=== PATIENT | female | born 1980 | race American Indian/Alaskan Native ===

== ENCOUNTER 2020-11-27 20:54 | Emergency (ER) | payer SELFPAY ==
[2020-11-27 23:52] LABS: Hematocrit 32.2 % (30.3-42.9); Hemoglobin 10.5 gm/dl (10.1-14.3); Mean Corpuscular HGB Conc 33 % (30-34); Mean Corpuscular Volume 83 fl (79-97); Platelet Count 425 K/mm3 (140-440); Red Cell Distribution Width 16.8 % (13.2-15.2)
[2020-11-27 23:53] LABS: Basophils # (Auto) 0.1 K/mm3 (0.0-0.1); Basophils % (Auto) 0.5 % (0.0-1.8); Eosinophils # (Auto) 0.5 K/mm3 (0.0-0.4); Eosinophils % (Auto) 3.3 % (0.0-4.3); Lymphocytes # (Auto) 2.5 K/mm3 (1.2-5.4); Lymphocytes % (Auto) 17.8 % (13.4-35.0); Monocytes # (Auto) 1.1 K/mm3 (0.0-0.8); Monocytes % (Auto) 7.5 % (0.0-7.3)
[2020-11-28 00:06] LABS: Blood Urea Nitrogen 11 mg/dL (7-17); Calcium 9.6 mg/dL (8.4-10.2); Hemolysis Index 2
[2020-11-28 00:28] LABS: BUN/Creatinine Ratio 16
== END 2020-11-28 00:45 | disposition left against medical advice (07) ==
LOC: ED 20:54
DX: Z53.21 Procedure and treatment not carried out due to patient leaving prior to being seen by health care provider (principal)
CPT/HCPCS: 36415; 80048; 85025

== ENCOUNTER 2020-11-28 10:05 | Observation (INO) | payer OTHER ==
--- NOTE | 2020-11-28 10:27 | Event Note ---
ED Screening Note ED Screening Note: here yesterday but left due to wait co abd pain and weakness she is associating this with prior spleen lac seen at [facility] recently details unclear pt whispering and I can not extract a lot of info also co rectal bleeding with hx anemia This initial assessment/diagnostic orders/clinical plan/treatment(s) is/are subject to change based on patients health status, clinical progression and re- assessment by fellow clinical providers in the ED. Further treatment and workup at subsequent clinical providers discretion. Patient/guardian urged not to elope from the ED as their condition may be serious if not clinically assessed and managed. Initial orders include: repeat labs ua
[2020-11-28 11:08] LABS: Hematocrit 30.8 % (30.3-42.9); Mean Corpuscular HGB Conc 33 % (30-34); Mean Corpuscular Volume 82 fl (79-97); Platelet Count 452 K/mm3 (140-440); Red Blood Count 3.74 M/mm3 (3.65-5.03); Red Cell Distribution Width 16.7 % (13.2-15.2)
[2020-11-28 11:11] LABS: Bilirubin,Urine NEG (Negative); Blood,Urine NEG (Negative); Color,Urine Yellow (Yellow); HCG Qualitative,Urine Negative (Negative); Mucus,Urine FEW /HPF
[2020-11-28 11:22] LABS: Amphetamine Screen,Urine Negative; Benzodiazepines Screen,Urine Negative; Cannabinoid Screen,Urine Negative; Methadone Screen,Urine Negative; Opiate Screen,Urine Negative
[2020-11-28 11:44] LABS: Cocaine Screen,Urine PRESUMPTIVE POSITIVE
[2020-11-28 11:52] LABS: Blood Urea Nitrogen 10 mg/dL (7-17); Calcium 8.7 mg/dL (8.4-10.2); Hemolysis Index 0
[2020-11-28 12:01] LABS: BUN/Creatinine Ratio 17
[2020-11-28] MEDS ORDERED: MORPHINE 4 MG/1 ML INJ IV ONE (16:54)
[2020-11-28] MEDS ORDERED: SODIUM CHLORIDE 0.9% 1000 ML 1,000 ML IV ONE (16:54)
[2020-11-28] MEDS ORDERED: ONDANSETRON 4 MG/2 ML INJ IV ONE (16:54)
[2020-11-28] MEDS ORDERED: HYDROmorphone 1 MG/1 ML INJ IV ONE (17:57)
--- NOTE | 2020-11-28 18:01 | Cat Scan Report ---
CT abdomen pelvis w con INDICATION / CLINICAL INFORMATION: abd pain, n/v, dark vomit, blood in stool. TECHNIQUE: All CT scans at this location are performed using CT dose reduction for ALARA by means of automated e xposure control. COMPARISON: 12/23/2015 FINDINGS: No free fluid is seen in the abdomen. The gallbladder has been surgically removed. A small low-densit y lesion is seen in the anterior portion of the spleen that was not previously identified. The liver is unremarkable in appearance. The kidneys, pancreas and adrenal glands are normal. Great vessels are unremarkable. No enlarged mesenteric or retroperitoneal lymph nodes are seen. In the pelvis, no free fluid is seen. No enlarged lymph nodes are identified. A moderate amount of fe arturo material seen throughout the colon. The bladder is unremarkable in appearance. The appendix is no t well visualized. No significant skeletal abnormality is identified. IMPRESSION: 1. Small low-density lesion in the anterior portion of the spleen that was not present previously and is of unknown clinical significance. Ultrasound may be helpful for further evaluation if clinically indicated 2. Cholecystectomy 3. Moderate amount of fecal material throughout the colon Signer Name: Estrada Alan MD FACR Signed: 11/28/2020 5:56 PM Workstation Name: [id number]
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
--- NOTE | 2020-11-28 20:03 | Ultrasound Report ---
US abdomen complete INDICATION / CLINICAL INFORMATION: abd pain, abnormal CT. COMPARISON: None available. FINDINGS: A small cystic area is seen around the spleen similar to CT from today. The gallbladder has been surg ically removed. Common bile duct is normal measuring 2 mm. Visualized portions of the liver, kidneys, pancreas, aorta and inferior vena cava are normal. IMPRESSION: 1. Small cystic area around spleen similar in appearance to the CT scan from today and of unknown cli nical significance. 2. Cholecystectomy Signer Name: Estrada Alan MD FACR Signed: 11/28/2020 7:59 PM Workstation Name: [id number]
[2020-11-28] MEDS ORDERED: PANTOPRAZOLE 80 MG in SODIUM CHLORIDE 0.9% 100 ML IV SCH (21:00)
[2020-11-28] MEDS ORDERED: MORPHINE 2 MG/1 ML INJ IV PRN (22:18)
[2020-11-28] MEDS ORDERED: ALBUTEROL 2.5 MG/3 ML NEBU IH PRN (22:18)
[2020-11-28] MEDS ORDERED: NICOTINE 14 MG/24 HR PATCH TD ONE (22:41)
[2020-11-28] MEDS ORDERED: D5W/0.45% NACL 1,000 ML IV SCH (23:00)
--- NOTE | 2020-11-28 23:14 | History and Physical Report ---
History of Present Illness Date of examination: 11/28/20 Date of admission: 11/28/2020 Chief complaint: nausea, vomiting, and epigastric pain History of present illness: 40-year-old female who is an ongoing smoker with history of gallstones, hernia, and insomnia who presents to [facility] ED with complaints of epigastric pain, nausea, dark-colored emesis, bright red blood per rectum. Patient states that she has been experiencing nausea and vomiting x1 week, and dark-colored emesis x1 - 2 days. Endorses going to [facility] a few days ago and was reportedly diagnosed with a splenic laceration, and scheduled to see general surgery as outpatient. She became nervous after having an episode of bright red blood per rectum earlier today and decided to come into the ED for further evaluation and treatment. Denies history of hemorrhoids, rectal trauma, diarrhea, fever, chills, shortness of breath, palpitation, or recent sick contacts Past History Past Medical History: other (Gallstones, hernia, insomnia, transfusion post C- section) Past Surgical History: cholecystectomy, (X1), hernia repair, Other ("Abdominal surgery") Social history: lives with family, smoking (Smokes cigarettes daily, occasional marijuana use, social drinker) Family history: diabetes, hypertension Medications and Allergies Allergies Allergy/AdvReac Type Severity Reaction Status Date / Time codeine Allergy Swelling Verified 11/28/20 10:31 in throat milk Allergy Hives, Verified 11/28/20 10:31 Vomiting Penicillins AdvReac Hives Verified 11/28/20 10:31 Home Medications Medication Instructions Recorded Confirmed Last Taken Type Ondansetron [Zofran Odt] 4 mg PO Q8H PRN #10 tab.rapdis 04/09/16 04/14/16 04/13/16 Rx HYDROcodone/APAP 10-325 [[place] 1 each PO Q6HR PRN #30 tablet 04/14/16 Unknown Rx 10-325 mg TAB] Active Meds: Active Medications Albuterol (Albuterol 2.5 Mg/3 Ml Nebu) 2.5 mg IH Q3HRT PRN PRN Reason: Shortness Of Breath Hydromorphone HCl (Hydromorphone 1 Mg/1 Ml Inj) 0.5 mg IV Q3H PRN PRN Reason: Pain , Severe (7-10) Pantoprazole Sodium 80 mg/ (Sodium Chloride) 100 mls @ 10 mls/hr IV DIRECT AYANNA Dextrose/Sodium Chloride (D5/0.45ns) 1,000 mls @ 100 mls/hr IV DIRECT AYANNA Metoclopramide HCl (Metoclopramide 10 Mg/2 Ml Inj) 10 mg IV Q6H PRN PRN Reason: Nausea And Vomiting Morphine Sulfate (Morphine 2 Mg/1 Ml Inj) 2 mg IV Q4H PRN PRN Reason: Pain, Moderate (4-6) Ondansetron HCl (Ondansetron 4 Mg/2 Ml Inj) 4 mg IV Q6H PRN PRN Reason: Nausea And Vomiting Sodium Chloride (Sodium Chloride 0.9% 10 Ml Flush Syringe) 10 ml IV BID AYANNA Sodium Chloride (Sodium Chloride 0.9% 10 Ml Flush Syringe) 10 ml IV PRN PRN PRN Reason: LINE FLUSH Review of Systems All systems: negative (As noted in HPI) Exam - Physical Exam Narrative exam: Physical exam General appearance: Present: No acute distress, alert and oriented 3, well nourished, adult female - EENT Eyes: Present: PERRL, EOM intact ENT: hearing intact, normal dentition - Neck Neck: Present: supple, normal ROM - Respiratory Respiratory effort: Non-labored Respiratory: Clear throughout - Cardiovascular Heart rate: 80 (bpm) Rhythm: Sinus Heart Sounds: Present: S1 & S2. Absent: rub, click - Extremities Extremities: no ischemia, pulses intact, - Peripheral Assessment Peripheral Pulses: within normal limits - Abdominal General gastrointestinal: soft, non-tender, normal bowel sounds - Integumentary Integumentary: Present: warm, dry - Musculoskeletal Musculoskeletal: Able to move all extremities -Neurological Neurological: CN II-XII intact - Psychiatric Psychiatric: Appropriate for situation ,cooperative - Constitutional Vitals: Temp Pulse Resp BP Pulse Ox 98.5 F 83 18 108/67 98 11/28/20 17:55 11/28/20 17:55 11/28/20 18:24 11/28/20 17:55 11/28/20 18:24 Results - Labs CBC & Chem 7: 11/28/20 10:48 11/28/20 10:48 Labs: Laboratory Last Values WBC 13.1 K/mm3 (4.5-11.0) H 11/28/20 10:48 RBC 3.74 M/mm3 (3.65-5.03) 11/28/20 10:48 Hgb 10.0 gm/dl (10.1-14.3) L 11/28/20 10:48 Hct 30.8 % (30.3-42.9) 11/28/20 10:48 MCV 82 fl (79-97) 11/28/20 10:48 MCH 27 pg (28-32) L 11/28/20 10:48 MCHC 33 % (30-34) 11/28/20 10:48 RDW 16.7 % (13.2-15.2) H 11/28/20 10:48 Plt Count 452 K/mm3 (140-440) H 11/28/20 10:48 Sodium 139 mmol/L (137-145) 11/28/20 10:48 Potassium 3.7 mmol/L (3.6-5.0) 11/28/20 10:48 Chloride 103.5 mmol/L (98-107) 11/28/20 10:48 Carbon Dioxide 23 mmol/L (22-30) 11/28/20 10:48 Anion Gap 16 mmol/L 11/28/20 10:48 BUN 10 mg/dL (7-17) 11/28/20 10:48 Creatinine 0.6 mg/dL (0.6-1.2) 11/28/20 10:48 Estimated GFR > 60 ml/min 11/28/20 10:48 BUN/Creatinine Ratio 17 % 11/28/20 10:48 Glucose 96 mg/dL (65-100) 11/28/20 10:48 Calcium 8.7 mg/dL (8.4-10.2) 11/28/20 10:48 Urine Color Yellow (Yellow) 11/28/20 10:42 Urine Turbidity Clear (Clear) 11/28/20 10:42 Urine pH 6.0 (5.0-7.0) 11/28/20 10:42 Ur Specific [place] 1.015 (1.003-1.030) 11/28/20 10:42 Urine Protein 30 mg/dl mg/dL (Negative) 11/28/20 10:42 Urine Glucose (UA) 150 mg/dL (Negative) 11/28/20 10:42 Urine Ketones Neg mg/dL (Negative) 11/28/20 10:42 Urine Blood Neg (Negative) 11/28/20 10:42 Urine Nitrite Neg (Negative) 11/28/20 10:42 Urine Bilirubin Neg (Negative) 11/28/20 10:42 Urine Urobilinogen 2.0 mg/dL (<2.0) 11/28/20 10:42 Ur Leukocyte Esterase Neg (Negative) 11/28/20 10:42 Urine WBC (Auto) 1.0 /HPF (0.0-6.0) 11/28/20 10:42 Urine RBC (Auto) 1.0 /HPF (0.0-6.0) 11/28/20 10:42 U Epithel Cells (Auto) < 1.0 /HPF (0-13.0) 11/28/20 10:42 Urine Mucus Few /HPF 11/28/20 10:42 Urine HCG, Qual Negative (Negative) 11/28/20 10:42 Urine Opiates Screen Negative 11/28/20 10:42 Urine Methadone Screen Negative 11/28/20 10:42 Ur Barbiturates Screen Negative 11/28/20 10:42 Ur Phencyclidine Scrn Negative 11/28/20 10:42 Ur Amphetamines Screen Negative 11/28/20 10:42 U Benzodiazepines Scrn Negative 11/28/20 10:42 Urine Cocaine Screen Presumptive positive 11/28/20 10:42 U Marijuana (THC) Screen Negative 11/28/20 10:42 Drugs of Abuse Note Disclamer 11/28/20 10:42 Microbiology: Microbiology 11/28/20 18:27 Stool Stool Occult Blood (KEVIN) - Final - Diagnostic Impressions Diagnostic Impressions: CT Abdomen/Pelvis: FINDINGS: No free fluid is seen in the abdomen. The gallbladder has been surgically removed. A small low- density lesion is seen in the anterior portion of the spleen that was not previously identified. The liver is unremarkable in appearance. The kidneys, pancreas and adrenal glands are normal. Great vessels are unremarkable. No enlarged mesenteric or retroperitoneal lymph nodes are seen. In the pelvis, no free fluid is seen. No enlarged lymph nodes are identified. A moderate amount of fecal material seen throughout the colon. The bladder is unremarkable in appearance. The appendix is not well visualized. No significant skeletal abnormality is identified. IMPRESSION: 1. Small low-density lesion in the anterior portion of the spleen that was not present previously and is of unknown clinical significance. Ultrasound may be helpful for further evaluation if clinically indicated 2. Cholecystectomy 3. Moderate amount of fecal material throughout the colon Abd US: FINDINGS: A small cystic area is seen around the spleen similar to CT from toda y. The gallbladder has been surgically removed. Common bile duct is normal measuring 2 mm. Visualized portions of the liver, kidneys, pancreas, aorta and inferior vena cava are normal. IMPRESSION: 1. Small cystic area around spleen similar in appearance to the CT scan from today and of unknown clinical significance. 2. Cholecystectomy Assessment and Plan Assessment and plan: GI bleed -Complains of dark colored emesis, and bright red blood per rectum -CT abdomen pelvis shows small cystic area around spleen -GI consulted in ED recommendations appreciated -NPO -On IVF -On Protonix drip -Try and obtain medical records from [facility] Acute abdominal pain -Complains of epigastric pain -Not sure if this is related to the cystic area seen on spleen -GI following -Pain management -Supportive care Tobacco abuse -Current every day smoker -Counseled for cessation -Nicotine patch when necessary Marijuana use -Counseled for cessation DVT PPX -Hold all anticoagulation d/t GIB -SCD's
[2020-11-29] MEDS: HYDROmorphone 1 MG/1 ML INJ IV PRN ×2 (01:53→07:54)
[2020-11-29] MEDS: METOCLOPRAMIDE 10 MG/2 ML INJ IV PRN (01:53)
[2020-11-29 05:47] LABS: Basophils # (Auto) 0.1 K/mm3 (0.0-0.1); Basophils % (Auto) 0.8 % (0.0-1.8); Eosinophils # (Auto) 0.4 K/mm3 (0.0-0.4); Eosinophils % (Auto) 4.6 % (0.0-4.3); Hematocrit 30.9 % (30.3-42.9); Hemoglobin 9.7 gm/dl (10.1-14.3); Lymphocytes # (Auto) 2.7 K/mm3 (1.2-5.4); Lymphocytes % (Auto) 30.5 % (13.4-35.0); Mean Corpuscular HGB Conc 31 % (30-34); Mean Corpuscular Volume 83 fl (79-97); Monocytes # (Auto) 0.7 K/mm3 (0.0-0.8); Monocytes % (Auto) 7.5 % (0.0-7.3); Platelet Count 422 K/mm3 (140-440); Red Blood Count 3.73 M/mm3 (3.65-5.03)
[2020-11-29 06:06] LABS: Blood Urea Nitrogen 4 mg/dL (7-17); Calcium 8.5 mg/dL (8.4-10.2); Hemolysis Index 2
[2020-11-29 06:18] LABS: BUN/Creatinine Ratio 7
--- NOTE | 2020-11-29 10:44 | Gastroenterology Consultation ---
History of Present Illness - Reason for Consult Consult date: 11/29/20 N/V, Rectal Bleed, Cocaine Abuse Requesting physician: JOSEPH JACKSON - History of Present Illness The patient is a 40 yo female admitted with N/V/Abdominal pain. She has a recent hx of cocaine/EtOH binging. She has relatively normal labs, and no vomiting or signs of severe pain since admission. She has not required transfusion, and her hct is normal, despite c/o rectal bleeding at home. Ab dominal imaging has been unremarkable. She has a hx of CCY for gallstones, but current LFTs are WNL. Past History Past Medical History: other (Chronic pain/nausea disorder) Past Surgical History: cholecystectomy, (X1), hernia repair, Other ("Abdominal surgery") Social history: lives with family, smoking (Smokes cigarettes daily, occasional marijuana use, social drinker), alcohol abuse, other (Cocaine/MJ abuse) Family history: diabetes, hypertension Medications and Allergies Allergies Allergy/AdvReac Type Severity Reaction Status Date / Time codeine Allergy Swelling Verified 11/28/20 10:31 in throat milk Allergy Hives, Verified 11/28/20 10:31 Vomiting Penicillins AdvReac Hives Verified 11/28/20 10:31 Home Medications Medication Instructions Recorded Confirmed Last Taken Type Ondansetron [Zofran Odt] 4 mg PO Q8H PRN #10 tab.rapdis 04/09/16 04/14/16 04/13/16 Rx HYDROcodone/APAP 10-325 [Julian 1 each PO Q6HR PRN #30 tablet 04/14/16 Unknown Rx 10-325 mg TAB] Active Meds: Active Medications Albuterol (Albuterol 2.5 Mg/3 Ml Nebu) 2.5 mg IH Q3HRT PRN PRN Reason: Shortness Of Breath Hydromorphone HCl (Hydromorphone 1 Mg/1 Ml Inj) 0.5 mg IV Q3H PRN PRN Reason: Pain , Severe (7-10) Last Admin: 11/29/20 07:54 Dose: 0.5 mg Documented by: Pantoprazole Sodium 80 mg/ (Sodium Chloride) 100 mls @ 10 mls/hr IV DIRECT AYANNA Last Admin: 11/29/20 02:19 Dose: 8 mg/hr, 10 mls/hr Documented by: Dextrose/Sodium Chloride (D5/0.45ns) 1,000 mls @ 100 mls/hr IV DIRECT AYANNA Last Admin: 11/29/20 01:54 Dose: 100 mls/hr Documented by: Metoclopramide HCl (Metoclopramide 10 Mg/2 Ml Inj) 10 mg IV Q6H PRN PRN Reason: Nausea And Vomiting Last Admin: 11/29/20 01:53 Dose: 10 mg Documented by: Morphine Sulfate (Morphine 2 Mg/1 Ml Inj) 2 mg IV Q4H PRN PRN Reason: Pain, Moderate (4-6) Ondansetron HCl (Ondansetron 4 Mg/2 Ml Inj) 4 mg IV Q6H PRN PRN Reason: Nausea And Vomiting Sodium Chloride (Sodium Chloride 0.9% 10 Ml Flush Syringe) 10 ml IV BID AYANNA Sodium Chloride (Sodium Chloride 0.9% 10 Ml Flush Syringe) 10 ml IV PRN PRN PRN Reason: LINE FLUSH I HAVE REVIEWED/RECONCILED MEDICATIONS Review of Systems - Review of Systems All systems: negative (as noted in the HPI) Exam - Constitutional Vital Signs: Temp Pulse Resp BP Pulse Ox 98.0 F 73 18 125/83 99 11/29/20 06:58 11/29/20 06:58 11/29/20 06:58 11/29/20 06:58 11/29/20 06:58 General appearance: no acute distress - EENT Eyes: PERRL, EOM intact ENT: hearing intact, clear oral mucosa - Neck Neck: supple, normal ROM - Respiratory Respiratory effort: normal Respiratory: bilateral: CTA - Cardiovascular Rhythm: regular Heart Sounds: Present: S1 & S2 Extremities: no ischemia, No edema - Gastrointestinal General gastrointestinal: Present: soft, non-tender, non-distended - Integumentary Integumentary: Present: clear, warm, dry - Neurologic Neurological: alert and oriented x3 - Labs CBC & Chem 7: 11/29/20 04:53 11/29/20 04:53 Lab Results: Laboratory Results - last 24 hr 11/28/20 11/28/20 11/28/20 10:42 10:42 10:48 WBC 13.1 H RBC 3.74 Hgb 10.0 L Hct 30.8 MCV 82 MCH 27 L MCHC 33 RDW 16.7 H Plt Count 452 H Lymph % (Auto) [place] % (Auto) Eos % (Auto) Baso % (Auto) Lymph # (Auto) [place] # (Auto) Eos # (Auto) Baso # (Auto) Seg Neutrophils % Seg Neutrophils # Sodium Potassium Chloride Carbon Dioxide Anion Gap BUN Creatinine Estimated GFR BUN/Creatinine Ratio Glucose POC Glucose Hemoglobin A1c Calcium Urine Color Yellow Urine Turbidity Clear Urine pH 6.0 Ur Specific [place] 1.015 Urine Protein 30 mg/dl Urine Glucose (UA) 150 Urine Ketones Neg Urine Blood Neg Urine Nitrite Neg Urine Bilirubin Neg Urine Urobilinogen 2.0 Ur Leukocyte Esterase Neg Urine WBC (Auto) 1.0 Urine RBC (Auto) 1.0 U Epithel Cells (Auto) < 1.0 Urine Mucus Few Urine HCG, Qual Negative Urine Opiates Screen Negative Urine Methadone Screen Negative Ur Barbiturates Screen Negative Ur Phencyclidine Scrn Negative Ur Amphetamines Screen Negative U Benzodiazepines Scrn Negative Urine Cocaine Screen Presumptive positive U Marijuana (THC) Screen Negative Drugs of Abuse Note Disclamer 11/28/20 11/28/20 11/29/20 10:48 22:30 04:53 WBC 8.8 RBC 3.73 Hgb 9.7 L Hct 30.9 MCV 83 MCH 26 L MCHC 31 RDW 17.0 H Plt Count 422 Lymph % (Auto) 30.5 [place] % (Auto) 7.5 H Eos % (Auto) 4.6 H Baso % (Auto) 0.8 Lymph # (Auto) 2.7 [place] # (Auto) 0.7 Eos # (Auto) 0.4 Baso # (Auto) 0.1 Seg Neutrophils % 56.6 Seg Neutrophils # 5.0 Sodium 139 Potassium 3.7 Chloride 103.5 Carbon Dioxide 23 Anion Gap 16 BUN 10 Creatinine 0.6 Estimated GFR > 60 BUN/Creatinine Ratio 17 Glucose 96 POC Glucose Hemoglobin A1c 5.1 Calcium 8.7 Urine Color Urine Turbidity Urine pH Ur Specific [place] Urine Protein Urine Glucose (UA) Urine Ketones Urine Blood Urine Nitrite Urine Bilirubin Urine Urobilinogen Ur Leukocyte Esterase Urine WBC (Auto) Urine RBC (Auto) U Epithel Cells (Auto) Urine Mucus Urine HCG, Qual Urine Opiates Screen Urine Methadone Screen Ur Barbiturates Screen Ur Phencyclidine Scrn Ur Amphetamines Screen U Benzodiazepines Scrn Urine Cocaine Screen U Marijuana (THC) Screen Drugs of Abuse Note 11/29/20 11/29/20 04:53 05:48 WBC RBC Hgb Hct MCV MCH MCHC RDW Plt Count Lymph % (Auto) [place] % (Auto) Eos % (Auto) Baso % (Auto) Lymph # (Auto) [place] # (Auto) Eos # (Auto) Baso # (Auto) Seg Neutrophils % Seg Neutrophils # Sodium 140 Potassium 3.5 L Chloride 106.5 Carbon Dioxide 24 Anion Gap 13 BUN 4 L Creatinine 0.6 Estimated GFR > 60 BUN/Creatinine Ratio 7 Glucose 98 POC Glucose 129 H Hemoglobin A1c Calcium 8.5 Urine Color Urine Turbidity Urine pH Ur Specific [place] Urine Protein Urine Glucose (UA) Urine Ketones Urine Blood Urine Nitrite Urine Bilirubin Urine Urobilinogen Ur Leukocyte Esterase Urine WBC (Auto) Urine RBC (Auto) U Epithel Cells (Auto) Urine Mucus Urine HCG, Qual Urine Opiates Screen Urine Methadone Screen Ur Barbiturates Screen Ur Phencyclidine Scrn Ur Amphetamines Screen U Benzodiazepines Scrn Urine Cocaine Screen U Marijuana (THC) Screen Drugs of Abuse Note Assessment and Plan - Patient Problems (1) Abdominal pain Current Visit: Yes Status: Acute Qualifiers: Abdominal location: epigastric Qualified Code(s): R10.13 - Epigastric pain Plan to address problem: - No signs on imaging/labs of acute GI problem nor severe bleeding. - Recommend MVI therapy, minimize narcotics, regular diet. - Patient encouraged to discontinue substance abuse. - No further recs at present; will sign off; please call with questions.
[2020-11-29] MEDS ORDERED: MULTIVITAMINS ,THERAPEUTIC TAB PO SCH (11:00)
--- NOTE | 2020-11-29 14:03 | Progress Note ---
Assessment and Plan Assessment and plan: Assessment and plan: GI bleed -Complains of dark colored emesis, and bright red blood per rectum -CT abdomen pelvis shows small cystic area around spleen -GI consulted in ED recommendations appreciated -NPO -On IVF -On Protonix drip -Try and obtain medical records from [facility] Acute abdominal pain -Complains of epigastric pain -Not sure if this is related to the cystic area seen on spleen -GI following -Pain management -Supportive care Tobacco abuse -Current every day smoker -Counseled for cessation -Nicotine patch when necessary Marijuana use -Counseled for cessation DVT PPX -Hold all anticoagulation d/t GIB -SCD's 11/29/20 Patient has no nausea vomiting. No GI bleeding Patient is seen and evaluated by GI. No EGD at this point Patient is on Protonix 40 mg p.o. daily. Patient need to quit taking cocaine. We will recheck CBC BMP in the morning Possible discharge planning in the morning if cleared by GI History Interval history: Patient is seen and examined at the bedside Patient chart and medications reviewed Patient has no nausea vomiting no GI bleeding at this time Patient is seen and evaluated by GI. No EGD at this time. Vitals are stable Hospitalist Physical - Constitutional Vitals: Temp Pulse Resp BP Pulse Ox 98.0 F 73 18 125/83 99 11/29/20 06:58 11/29/20 06:58 11/29/20 06:58 11/29/20 06:58 11/29/20 06:58 Results - Labs CBC & Chem 7: 11/29/20 04:53 11/29/20 04:53 Labs: Laboratory Last Values WBC 8.8 K/mm3 (4.5-11.0) 11/29/20 04:53 RBC 3.73 M/mm3 (3.65-5.03) 11/29/20 04:53 Hgb 9.7 gm/dl (10.1-14.3) L 11/29/20 04:53 Hct 30.9 % (30.3-42.9) 11/29/20 04:53 MCV 83 fl (79-97) 11/29/20 04:53 MCH 26 pg (28-32) L 11/29/20 04:53 MCHC 31 % (30-34) 11/29/20 04:53 RDW 17.0 % (13.2-15.2) H 11/29/20 04:53 Plt Count 422 K/mm3 (140-440) 11/29/20 04:53 Lymph % (Auto) 30.5 % (13.4-35.0) 11/29/20 04:53 [place] % (Auto) 7.5 % (0.0-7.3) H 11/29/20 04:53 Eos % (Auto) 4.6 % (0.0-4.3) H 11/29/20 04:53 Baso % (Auto) 0.8 % (0.0-1.8) 11/29/20 04:53 Lymph # (Auto) 2.7 K/mm3 (1.2-5.4) 11/29/20 04:53 [place] # (Auto) 0.7 K/mm3 (0.0-0.8) 11/29/20 04:53 Eos # (Auto) 0.4 K/mm3 (0.0-0.4) 11/29/20 04:53 Baso # (Auto) 0.1 K/mm3 (0.0-0.1) 11/29/20 04:53 Seg Neutrophils % 56.6 % (40.0-70.0) 11/29/20 04:53 Seg Neutrophils # 5.0 K/mm3 (1.8-7.7) 11/29/20 04:53 Sodium 140 mmol/L (137-145) 11/29/20 04:53 Potassium 3.5 mmol/L (3.6-5.0) L 11/29/20 04:53 Chloride 106.5 mmol/L (98-107) 11/29/20 04:53 Carbon Dioxide 24 mmol/L (22-30) 11/29/20 04:53 Anion Gap 13 mmol/L 11/29/20 04:53 BUN 4 mg/dL (7-17) L 11/29/20 04:53 Creatinine 0.6 mg/dL (0.6-1.2) 11/29/20 04:53 Estimated GFR > 60 ml/min 11/29/20 04:53 BUN/Creatinine Ratio 7 % 11/29/20 04:53 Glucose 98 mg/dL (65-100) 11/29/20 04:53 POC Glucose 92 mg/dL (70-105) 11/29/20 11:15 Hemoglobin A1c 5.1 % (4-6) 11/28/20 22:30 Calcium 8.5 mg/dL (8.4-10.2) 11/29/20 04:53 Urine Color Yellow (Yellow) 11/28/20 10:42 Urine Turbidity Clear (Clear) 11/28/20 10:42 Urine pH 6.0 (5.0-7.0) 11/28/20 10:42 Ur Specific [place] 1.015 (1.003-1.030) 11/28/20 10:42 Urine Protein 30 mg/dl mg/dL (Negative) 11/28/20 10:42 Urine Glucose (UA) 150 mg/dL (Negative) 11/28/20 10:42 Urine Ketones Neg mg/dL (Negative) 11/28/20 10:42 Urine Blood Neg (Negative) 11/28/20 10:42 Urine Nitrite Neg (Negative) 11/28/20 10:42 Urine Bilirubin Neg (Negative) 11/28/20 10:42 Urine Urobilinogen 2.0 mg/dL (<2.0) 11/28/20 10:42 Ur Leukocyte Esterase Neg (Negative) 11/28/20 10:42 Urine WBC (Auto) 1.0 /HPF (0.0-6.0) 11/28/20 10:42 Urine RBC (Auto) 1.0 /HPF (0.0-6.0) 11/28/20 10:42 U Epithel Cells (Auto) < 1.0 /HPF (0-13.0) 11/28/20 10:42 Urine Mucus Few /HPF 11/28/20 10:42 Urine HCG, Qual Negative (Negative) 11/28/20 10:42 Urine Opiates Screen Negative 11/28/20 10:42 Urine Methadone Screen Negative 11/28/20 10:42 Ur Barbiturates Screen Negative 11/28/20 10:42 Ur Phencyclidine Scrn Negative 11/28/20 10:42 Ur Amphetamines Screen Negative 11/28/20 10:42 U Benzodiazepines Scrn Negative 11/28/20 10:42 Urine Cocaine Screen Presumptive positive 11/28/20 10:42 U Marijuana (THC) Screen Negative 11/28/20 10:42 Drugs of Abuse Note Disclamer 11/28/20 10:42 Microbiology: Microbiology 11/28/20 23:18 Peripheral/Venous Blood Culture - Preliminary Culture in Progress 11/28/20 23:13 Peripheral/Venous Blood Culture - Preliminary Culture in Progress 11/28/20 18:27 Stool Stool Occult Blood (KEVIN) - Final Nath/IV: Voiding Method Toilet Active Medications - Current Medications Current Medications: Generic Name Dose Route Start Last Admin Trade Name Freq PRN Reason Stop Dose Admin Albuterol 2.5 mg 11/28/20 22:18 Albuterol 2.5 Mg/3 Ml Nebu IH Q3HRT PRN Shortness Of Breath Dextrose/Sodium Chloride 1,000 mls @ 100 mls/hr 11/28/20 23:00 11/29/20 01:54 D5/0.45ns IV 100 mls/hr DIRECT AYANNA Administration Metoclopramide HCl 10 mg 11/28/20 22:18 11/29/20 01:53 Metoclopramide 10 Mg/2 Ml Inj IV 10 mg Q6H PRN Administration Nausea And Vomiting Morphine Sulfate 1 mg 11/29/20 10:45 Morphine 2 Mg/1 Ml Inj IV Q6H PRN Pain, Moderate (4-6) Multivitamins 1 each 11/29/20 11:00 Multivitamins ,Therapeutic Tab PO QDAY AYANNA Ondansetron HCl 4 mg 11/28/20 22:18 Ondansetron 4 Mg/2 Ml Inj IV Q6H PRN Nausea And Vomiting Pantoprazole Sodium 40 mg 11/29/20 11:00 Pantoprazole 40 Mg Tab PO QDAC AYANNA Sodium Chloride 10 ml 11/29/20 10:00 Sodium Chloride 0.9% 10 Ml Flush Syringe IV BID AYANNA Sodium Chloride 10 ml 11/28/20 22:18 Sodium Chloride 0.9% 10 Ml Flush Syringe IV PRN PRN LINE FLUSH Nutrition/Malnutrition Assess - Malnutrition Assessment Minimum of two criteria: No - Attestation Statement I have reviewed and agreed w/ Malnutrition eval & tx plan: Yes
[2020-11-29] MEDS: ONDANSETRON 4 MG/2 ML INJ IV PRN ×2 (14:20→21:36)
[2020-11-29] MEDS: MORPHINE 2 MG/1 ML INJ IV PRN ×2 (15:25→21:36)
[2020-11-29] MEDS ORDERED: NICOTINE 14 MG/24 HR PATCH TD ONE (22:09)
[2020-11-29] MEDS: PANTOPRAZOLE 40 MG TAB PO SCH (22:15)
[2020-11-30] MEDS: MORPHINE 2 MG/1 ML INJ IV PRN ×2 (05:54→14:28)
[2020-11-30] MEDS: METOCLOPRAMIDE 10 MG/2 ML INJ IV PRN (05:54)
[2020-11-30 09:16] LABS: Basophils # (Auto) 0.1 K/mm3 (0.0-0.1); Basophils % (Auto) 0.6 % (0.0-1.8); Eosinophils # (Auto) 0.2 K/mm3 (0.0-0.4); Eosinophils % (Auto) 2.7 % (0.0-4.3); Hematocrit 31.5 % (30.3-42.9); Lymphocytes # (Auto) 2.8 K/mm3 (1.2-5.4); Lymphocytes % (Auto) 30.2 % (13.4-35.0); Mean Corpuscular HGB Conc 32 % (30-34); Mean Corpuscular Volume 83 fl (79-97); Monocytes # (Auto) 0.6 K/mm3 (0.0-0.8); Monocytes % (Auto) 6.5 % (0.0-7.3); Platelet Count 447 K/mm3 (140-440); Red Blood Count 3.79 M/mm3 (3.65-5.03); Red Cell Distribution Width 17.1 % (13.2-15.2)
[2020-11-30 09:19] LABS: Alanine Aminotransferase 6 units/L (7-56); Albumin 3.4 g/dL (3.9-5); Blood Urea Nitrogen 4 mg/dL (7-17); Calcium 8.5 mg/dL (8.4-10.2); Hemolysis Index 15
[2020-11-30 09:21] LABS: BUN/Creatinine Ratio 6; Bilirubin,Direct < 0.2 mg/dL (0-0.2)
[2020-11-30] MEDS ORDERED: NICOTINE 14 MG/24 HR PATCH TD SCH (10:00)
[2020-11-30 12:29] VITALS: BP 117/73
[2020-11-30] MEDS ORDERED: POTASSIUM CHLORIDE ER 20 MEQ TAB PO ONE (13:13)
--- NOTE | 2020-11-30 13:19 | Discharge Summary ---
Providers - Providers Date of Admission: 11/28/20 22:18 Date of discharge: 11/30/20 Attending physician: JOSEPH JACKSON MD 11/28/20 20:42 Consult to Physician [CONS] Stat Comment: LLUVIA Tate spoke with Dr. Perez @ 2033 Consulting Provider: OZ PEREZ Physician Instructions: Reason For Exam: GI bleed, spleen lesion Primary care physician: [facility] Hospitalization Reason for admission: GI bleed. Acute abdominal pain tobacco abuse cocaine abuse Condition: Fair Hospital course: GI bleed -Complains of dark colored emesis, and bright red blood per rectum -CT abdomen pelvis shows small cystic area around spleen -GI consulted in ED recommendations appreciated -NPO -On IVF -On Protonix drip -Try and obtain medical records from [facility] Acute abdominal pain -Complains of epigastric pain -Not sure if this is related to the cystic area seen on spleen -GI following -Pain management -Supportive care Tobacco abuse -Current every day smoker -Counseled for cessation -Nicotine patch when necessary Marijuana use -Counseled for cessation DVT PPX -Hold all anticoagulation d/t GIB -SCD's 11/29/20 Patient has no nausea vomiting. No GI bleeding Patient is seen and evaluated by GI. No EGD at this point Patient is on Protonix 40 mg p.o. daily. Patient need to quit taking cocaine. We will recheck CBC BMP in the morning Possible discharge planning in the morning if cleared by GI 11/30/20 No GI bleeding. Patient complained mild nausea no vomiting. Patient was seen and evaluated by GI. No EGD at this point Patient advised to quit taking cocaine We will continue Protonix , Reglan. Recommend decrease intake of narcotic Discharge home and outpatient follow-up with primary care and GI in 1 to 2 weeks History 40-year-old female who is an ongoing smoker with history of gallstones, hernia, and insomnia who presents to [facility] ED with complaints of epigastric pain, nausea, dark-colored emesis, bright red blood per rectum. Patient states that she has been experiencing nausea and vomiting x1 week, and dark-colored emesis x1 - 2 days. Endorses going to [facility] a few days ago and was reportedly diagnosed with a splenic laceration, and scheduled to see general surgery as outpatient. She became nervous after having an episode of bright red blood per rectum earlier today and decided to come into the ED for further evaluation and treatment. Denies history of hemorrhoids, rectal trauma, diarrhea, fever, chills, shortness of breath, palpitation, or recent sick contacts Interval history: Patient is seen and examined at the bedside Patient chart and medications reviewed Patient has no nausea vomiting no GI bleeding at this time Patient is seen and evaluated by GI. No EGD at this time. Vitals are stable Disposition: DC-01 TO HOME OR SELFCARE Final Discharge Diagnosis (Prints w/discharge instructions): GI bleed resolved. Abdominal pain resolved tobacco abuse cocaine abuse - Discharge Diagnoses (1) Abdominal pain Status: Acute Qualifiers: Abdominal location: epigastric Qualified Code(s): R10.13 - Epigastric pain (2) Cocaine use Status: Acute (3) GI bleed Status: Acute Qualifiers: GI bleed type/associated pathology: unspecified gastrointestinal hemorrhage type Qualified Code(s): K92.2 - Gastrointestinal hemorrhage, unspecified (4) Nausea and vomiting Status: Acute Qualifiers: Vomiting type: unspecified Vomiting Intractability: non-intractable Qualified Code(s): R11.2 - Nausea with vomiting, unspecified Core Measure Documentation - Palliative Care Palliative Care/ Comfort Measures: Not Applicable - Core Measures Any of the following diagnoses?: none Exam - Constitutional Vitals: Temp Pulse Resp BP Pulse Ox 98.4 F 78 16 117/73 97 11/30/20 12:06 11/30/20 12:06 11/30/20 12:06 11/30/20 12:06 11/30/20 12:06 General appearance: Present: no acute distress - EENT Eyes: Present: PERRL ENT: hearing intact, clear oral mucosa - Neck Neck: Present: supple, normal ROM - Respiratory Respiratory effort: normal Respiratory: bilateral: CTA - Cardiovascular Heart Sounds: Present: S1 & S2. Absent: rub, click - Extremities Extremities: pulses symmetrical, No edema Peripheral Pulses: within normal limits - Abdominal General gastrointestinal: Present: soft, non-tender, non-distended, normal bowel sounds Female genitourinary: Present: normal - Integumentary Integumentary: Present: clear, warm, dry - Musculoskeletal Musculoskeletal: gait normal, strength equal bilaterally - Psychiatric Psychiatric: appropriate mood/affect, intact judgment & insight - Neurologic Neurologic: CNII-XII intact, moves all extremities Plan Diet: regular, low fat Follow up with: PRIMARY CARE,MD [Primary Care Provider] - 3-5 Days Prescriptions: Pantoprazole [Protonix TAB] 40 mg PO QDAC 30 Days tablet Metoclopramide HCl [Reglan TAB] 5 mg PO TIDAC 5 Days tablet
[2020-11-30] MEDS: PANTOPRAZOLE 40 MG TAB PO SCH (14:32)
[2020-11-30] MEDS: ONDANSETRON 4 MG/2 ML INJ IV PRN (14:36)
== END 2020-11-30 15:00 | disposition home or self-care (01) ==
LOC: ED 10:05 → INTOOBSV 22:18 → 3A 22:18 → 3B-SURG 22:47
PROVIDERS: ADMIT Internal Medicine Geriatric Medicine; ATTEND Hospitalist
DX: K92.2 Gastrointestinal hemorrhage, unspecified (principal); K21.9 Gastro-esophageal reflux disease without esophagitis; F17.210 Nicotine dependence, cigarettes, uncomplicated; F12.90 Cannabis use, unspecified, uncomplicated; G47.00 Insomnia, unspecified; D72.829 Elevated white blood cell count, unspecified; Z98.890 Other specified postprocedural states; Z79.899 Other long term (current) drug therapy; Z98.891 History of uterine scar from previous surgery; Z90.49 Acquired absence of other specified parts of digestive tract
CPT/HCPCS: 36415; 74177; 76700; 80048; 80076; 80307; 81001; 81025; 82271; 82962; 83036; 85025; 85027; 87040; 96361; 96365; 96366; 96375; 96376; 99285; C9113; G0378; J1170; J2270; J2405; J2765; J7030; Q9967

== ENCOUNTER 2021-01-26 22:17 | Emergency (ER) | payer OTHER ==
[2021-01-26] MEDS ORDERED: SODIUM CHLORIDE 0.9% 1000 ML 1,000 ML IV ONE (23:18)
[2021-01-26 23:36] LABS: Basophils % (Auto) 0.1 % (0.0-1.8); Eosinophils # (Auto) 0.2 K/mm3 (0.0-0.4); Eosinophils % (Auto) 1.6 % (0.0-4.3); Hematocrit 30.7 % (30.3-42.9); Hemoglobin 10.1 gm/dl (10.1-14.3); Lymphocytes # (Auto) 1.9 K/mm3 (1.2-5.4); Lymphocytes % (Auto) 14.1 % (13.4-35.0); Mean Corpuscular HGB Conc 33 % (30-34); Mean Corpuscular Volume 78 fl (79-97); Monocytes # (Auto) 1.2 K/mm3 (0.0-0.8); Monocytes % (Auto) 9.4 % (0.0-7.3); Platelet Count 307 K/mm3 (140-440); Red Blood Count 3.93 M/mm3 (3.65-5.03); Red Cell Distribution Width 18.2 % (13.2-15.2)
[2021-01-26] MEDS ORDERED: FAMOTIDINE 20 MG/2 ML INJ IV ONE (23:36)
[2021-01-26] MEDS ORDERED: dexAMETHasone 20 MG/5 ML VIAL IV ONE (23:36)
[2021-01-26] MEDS ORDERED: ONDANSETRON 4 MG/2 ML INJ IV ONE (23:36)
[2021-01-26] MEDS ORDERED: ACETAMINOPHEN 500 MG TAB PO ONE (23:40)
--- NOTE | 2021-01-26 23:40 | Emergency Department Report ---
ED GI Bleed HPI - General Chief complaint: GI Bleed Stated complaint: ABDOMINAL PAIN Time Seen by Provider: 01/26/21 23:15 Source: EMS Mode of arrival: Stretcher Limitations: No Limitations - History of Present Illness Initial comments: Patient is a 41-year-old female presents to the emergency department complaint of blood in stools. She states she has had blood in her vomit since Thursday. She states it was blood-streaked. She also notes that she is at white stuff in the back of her throat and notes some throat pain and neck pain. She states t hat her whole body is hurting she also has some mild abdominal pain as well. She also has a cough and states that she has not been vaccinated against COVID- 19. - Related Data Previous Rx's Medication Instructions Recorded Last Taken Type Ondansetron [Zofran Odt] 4 mg PO Q8H PRN #10 tab.rapdis 04/09/16 04/13/16 Rx HYDROcodone/APAP 10-325 [Oden 1 each PO Q6HR PRN #30 tablet 11/30/20 Unknown Rx 10-325 mg TAB] Metoclopramide HCl [Reglan TAB] 5 mg PO TIDAC 5 Days tablet 11/30/20 Unknown Rx Multivitamin Tab [Multiple Vitamin 1 each PO QDAY tablet 11/30/20 Unknown Rx TAB (Theragran)] Pantoprazole [Protonix TAB] 40 mg PO QDAC 30 Days tablet 11/30/20 Unknown Rx Doxycycline Hyclate [Doxycycline 100 mg PO Q12HR 10 Days #20 tab 01/27/21 Unknown Rx Hyclate TAB] Famotidine [Pepcid] 20 mg PO BID 30 Days #60 tablet 01/27/21 Unknown Rx Ondansetron [Zofran Odt] 4 mg PO Q8HR PRN 7 Days #20 01/27/21 Unknown Rx tab.rapdis Allergies Allergy/AdvReac Type Severity Reaction Status Date / Time codeine Allergy Swelling Verified 11/28/20 10:31 in throat milk Allergy Hives, Verified 11/28/20 10:31 Vomiting Penicillins AdvReac Hives Verified 11/28/20 10:31 ED Review of Systems ROS: Stated complaint: ABDOMINAL PAIN Other details as noted in HPI Constitutional: fever Eyes: denies: eye discharge ENT: denies: dental pain Respiratory: cough. denies: shortness of breath Cardiovascular: denies: chest pain Endocrine: denies: excessive sweating Gastrointestinal: nausea, vomiting, hematemesis Genitourinary: denies: frequency Musculoskeletal: myalgia Skin: denies: rash Neurological: denies: headache, weakness, numbness Psychiatric: denies: anxiety, depression Hematological/Lymphatic: easy bleeding ED Past Medical Hx - Past Medical History Hx Hypertension: No Hx Heart Attack/AMI: No Hx Congestive Heart Failure: No Hx Diabetes: No Hx Deep Vein Thrombosis: No Hx Pulmonary Embolism: No Hx GERD: Yes Hx Renal Disease: No Hx Sickle Cell Disease: No Hx Seizures: No Hx Kidney Stones: No Hx Asthma: No Hx COPD: No Hx Tuberculosis: No Hx HIV: No Additional medical history: gallstones, hernia, insomnia - Surgical History Hx Open Heart Surgery: No Hx Cholecystectomy: No Hx Appendectomy: Yes (07-14-15) Hx Breast Surgery: No Additional Surgical History: hernia repair, ABD SURGERY - Social History Smoking Status: Current Every Day Smoker - Medications Home Medications: Home Medications Medication Instructions Recorded Confirmed Last Taken Type Ondansetron [Zofran Odt] 4 mg PO Q8H PRN #10 tab.rapdis 04/09/16 04/14/16 04/13/16 Rx HYDROcodone/APAP 10-325 [Oden 1 each PO Q6HR PRN #30 tablet 11/30/20 Unknown Rx 10-325 mg TAB] Metoclopramide HCl [Reglan TAB] 5 mg PO TIDAC 5 Days tablet 11/30/20 Unknown Rx Multivitamin Tab [Multiple Vitamin 1 each PO QDAY tablet 11/30/20 Unknown Rx TAB (Theragran)] Pantoprazole [Protonix TAB] 40 mg PO QDAC 30 Days tablet 11/30/20 Unknown Rx Doxycycline Hyclate [Doxycycline 100 mg PO Q12HR 10 Days #20 tab 01/27/21 Unknown Rx Hyclate TAB] Famotidine [Pepcid] 20 mg PO BID 30 Days #60 tablet 01/27/21 Unknown Rx Ondansetron [Zofran Odt] 4 mg PO Q8HR PRN 7 Days #20 01/27/21 Unknown Rx tab.rapdis ED Physical Exam - General Limitations: No Limitations General appearance: alert - Head Head exam: Present: atraumatic, normocephalic - Eye Eye exam: Present: normal appearance Pupils: Present: normal accommodation - Expanded ENT Exam Expanded Throat exam: Positive: tonsillar erythema, tonsillar exudate - Neck Neck exam: Present: lymphadenopathy (tender) - Respiratory Respiratory exam: Present: normal lung sounds bilaterally. Absent: respiratory distress, wheezes - Cardiovascular Cardiovascular Exam: Present: regular rate, normal rhythm, normal heart sounds - GI/Abdominal GI/Abdominal exam: Present: soft, tenderness (epigastric) - Extremities Exam Extremities exam: Present: normal inspection - Back Exam Back exam: Present: normal inspection - Neurological Exam Neurological exam: Present: alert, oriented X3 - Psychiatric Psychiatric exam: Present: normal affect, normal mood - Skin Skin exam: Present: warm, dry, intact ED Course Vital Signs 01/26/21 01/27/21 01/27/21 22:50 01:50 05:55 Temperature 101.3 F H 99.3 F Pulse Rate 115 H 86 96 H Respiratory 19 18 18 Rate Blood Pressure 112/67 139/74 129/75 [Left] O2 Sat by Pulse 100 98 98 Oximetry 01/27/21 06:10 Temperature 99.3 F Pulse Rate 85 Respiratory 18 Rate Blood Pressure 134/74 [Left] O2 Sat by Pulse 98 Oximetry - Reevaluation(s) Reevaluation #1: 01/27/21 06:05 Vitals improved after fluids and tylenol. Source of infection is pneumonia but given other symptoms cannot exclude viral illness including COVID 19. Patient with no desaturation. Plan to provide dose of doxycycline here, give RX for doxy and patient to follow up with PCP, obtain ouptatient covid testing. Her hemoglobin is stable from the last time she was seen here. ED Medical Decision Making - Lab Data Result diagrams: 01/26/21 23:21 01/26/21 23:21 - Medical Decision Making Patient is a 41-year-old female with history of previous GI bleeding who presents emergency department with complaints of nausea vomiting with some hematemesis. She also reports sore throat and neck pain. Patient states she has white stuff in the back of her throat. Here she is febrile and mildly tachycardic. She is nontoxic-appearing. Plan to give IV fluids test for strep and treat her pain and fever. If patient is not improved plan for further evaluation. Critical care attestation.: If time is entered above; I have spent that time in minutes in the direct care of this critically ill patient, excluding procedure time. ED Disposition Clinical Impression: Pneumonia Disposition: DC-01 TO HOME OR SELFCARE Is pt being admited?: No Does the pt Need Aspirin: No Condition: Stable Instructions: Community-Acquired Pneumonia, Adult, Bacterial Pneumonia (ED) Additional Instructions: Because you have multiple symptoms and were not vaccinated against COVID-19 you should also be tested for COVID-19 and you should isolate until you have been improving without fever for 3 days. You should take your antibiotics but return to the emergency department if any of your symptoms worsen or if you are not able to tolerate taking your pills by mouth. Prescriptions: Doxycycline Hyclate [Doxycycline Hyclate TAB] 100 mg PO Q12HR 10 Days #20 tab Famotidine [Pepcid] 20 mg PO BID 30 Days #60 tablet Ondansetron [Zofran Odt] 4 mg PO Q8HR PRN 7 Days #20 tab.rapdis PRN Reason: Nausea Referrals: ERICA PEREZ MD [Staff Physician] - 3-5 Days Forms: Accompanied Note, Work/School Release Form(ED) Time of Disposition: 04:00 Print Language: PERSIAN
[2021-01-26 23:59] LABS: Alanine Aminotransferase 14 units/L (7-56); Albumin 3.6 g/dL (3.9-5); Blood Urea Nitrogen 11 mg/dL (7-17); Calcium 8.6 mg/dL (8.4-10.2); Hemolysis Index 0
[2021-01-27] MEDS ORDERED: ACETAMINOPHEN 325 MG/10.15 ML ORAL LIQD UNIT DOSE PO ONE ×2 (00:16)
[2021-01-27 00:17] LABS: BUN/Creatinine Ratio 18
[2021-01-27] MEDS ORDERED: MORPHINE 4 MG/1 ML INJ IV ONE (00:34)
[2021-01-27 02:51] LABS: Amorphous Crystals,Urine Few; Bacteria,Urine 1+ /HPF (Negative); Bilirubin,Urine NEG (Negative); Blood,Urine NEG (Negative); Color,Urine Yellow (Yellow); RBC,Urine < 1.0 /HPF (0.0-6.0); Urobilinogen,Urine < 2.0 mg/dL (<2.0)
[2021-01-27 02:53] LABS: HCG Qualitative,Urine Negative (Negative)
--- NOTE | 2021-01-27 02:57 | XRay Report ---
. XR chest 1V ap INDICATION / CLINICAL INFORMATION: cough COMPARISON: 03/25/2016 FINDINGS: SUPPORT DEVICES: None. HEART / MEDIASTINUM: No significant abnormality. LUNGS / PLEURA: Right middle lungs are consolidation. Costophrenic sulci are sharp. No pneumothorax. ADDITIONAL FINDINGS: No significant additional findings. IMPRESSION: 1. Right middle lobe airspace disease concerning for pneumonia. Signer Name: Hardik Dunlap MD Signed: 01/27/2021 2:52 AM Workstation Name: [id number]
[2021-01-27] MEDS ORDERED: DOXYCYCLINE 100 MG CAP PO ONE (03:33)
[2021-01-27] MEDS ORDERED: MORPHINE 2 MG/1 ML INJ IV ONE (04:18)
[2021-01-27 06:11] VITALS: BP 134/74
== END 2021-01-27 06:20 | disposition home or self-care (01) ==
LOC: ED 22:17
DX: J18.9 Pneumonia, unspecified organism (principal); K21.9 Gastro-esophageal reflux disease without esophagitis; F17.200 Nicotine dependence, unspecified, uncomplicated; K92.2 Gastrointestinal hemorrhage, unspecified
CPT/HCPCS: 36415; 71045; 80053; 81001; 81025; 83690; 84703; 85025; 87116; 87430; 96360; 96374; 99284; J1100; J2270; J2405; J7030; 96361; 96375